=== PATIENT | male | born 1980 | race Two or more races ===

== ENCOUNTER 2017-04-21 19:38 | Emergency (ER) | payer MEDICAID ==
[~2017-04-21] VITALS: Ht 172.7 cm; Wt 97.8 kg
[2017-04-21 19:46] VITALS: BP 148/95
== END 2017-04-21 20:46 | disposition home or self-care (01) ==
LOC: ED 20:20
DX: S62.251A Displaced fracture of neck of first metacarpal bone, right hand, initial encounter for closed fracture (principal); W22.8XXA Striking against or struck by other objects, initial encounter; Y93.89 Activity, other specified; Y92.89 Other specified places as the place of occurrence of the external cause; Y99.8 Other external cause status
CPT/HCPCS: 29125